=== PATIENT | female | born 1990 | race Caucasian/White ===

== ENCOUNTER 2017-05-19 12:12 | Emergency (ER) | payer SELFPAY ==
[~2017-05-19] VITALS: Ht 165.1 cm; Wt 49.2 kg
[~2017-05-19 12:12] MED LIST: ULTRAM50 MG OR; ZOFRAN ODT4 MG OR
[2017-05-19 13:45] LABS: URINE BLOOD DIPSTICK TRACE-INTACT (NEGATIVE); URINE GLUCOSE - DIPSTICK NEGATIVE (NEGATIVE); URINE KETONE >=80 mg/dL (NEGATIVE); URINE LEUK ESTERASE TRACE (NEGATIVE); URINE NITRITE - DIPSTICK NEGATIVE (Negative); URINE PROTEIN - DIPSTICK 100 mg/dL (NEG-TRACE); URINE SPECIFIC GRAVITY 1.025
[2017-05-19 13:46] LABS: HEMATOCRIT 44.2 % (37.0-47.0); HEMOGLOBIN 14.7 g/dl (12.0-16.0); IMMATURE GRANULOCYTES 0.4 % (0.0-1.0); MEAN CELL VOLUME 80.4 fL CALC (80.0-100.0); MEAN CORPUSCULAR HGB 26.7 pG CALC (26.0-32.0); MEAN CORPUSCULAR HGB CONC 33.3 g/L CALC (32.0-36.0); NEUT# 9.76 thou/uL (2.00-7.15); RED BLOOD COUNT 5.5 mill/uL (4.20-5.60); RED CELL DISTRI WIDTH 12.8 % (11.5-15.5); URINE BILIRUBIN - DIPSTICK MODERATE (NEGATIVE); URINE CLARITY SL CLOUDY; URINE COLOR DK. YELLOW
[2017-05-19 13:50] LABS: URINE BACTERIA FEW hpf; URINE EPITHELIAL CELLS MODERATE EPI/hpf (0-FEW); URINE RBC 0-2 RBC/hpf (0-5); URINE WBC 0-2 WBC/hpf (0-5)
[2017-05-19 14:06] LABS: ALBUMIN 5.5 g/dL (3.2-5.0); ALKALINE PHOSPHATASE 69 u/l (38-126); ANION GAP 19 (6-22 (CALC)); BILIRUBIN, TOTAL 0.9 mg/dL (0.0-1.4); BUN 10 mg/dL (7-17); BUN/CREATININE RATIO 15 (12-20 (CALC)); CALCIUM 10.4 mg/dL (8.4-10.2); CARBON DIOXIDE 25 mmol/l (22-30); CHLORIDE 103 mmol/l (95-108); CREATININE 0.7 mg/dL (0.5-1.0); GFR > 60 ML/MIN (>=60 (CALC)); GFR FOR AFR.AMER. > 60 ML/MIN (>=60 (CALC)); GLUCOSE 107 mg/dL (65-105); POTASSIUM 4.2 mmol/l (3.5-5.1); SGOT/AST 21 u/l (14-36); SGPT/ALT 28 u/l (9-52); SODIUM 143 mmol/l (137-146); TOTAL PROTEIN 8.5 g/dL (6.3-8.2)
[2017-05-19] MEDS ORDERED: CIPROFLOXACN500 MG PO (14:35)
[2017-05-19] MEDS ORDERED: ZOFRAN ODT4 MG PO (14:35)
[2017-05-19 15:05] VITALS: BP 131/86
[2017-05-19 15:14] LABS: INFLUENZA A NONE DETECTED (NONE DETECT); INFLUENZA B NONE DETECTED (NONE DETECT)
== END 2017-05-19 15:05 | disposition home or self-care (01) | DRG 392 ==
LOC: ED 12:12
PROVIDERS: Emergency Medicine
DX: K52.9 Noninfective gastroenteritis and colitis, unspecified (principal); F17.210 Nicotine dependence, cigarettes, uncomplicated; R10.33 Periumbilical pain; R11.10 Vomiting, unspecified